=== PATIENT | female | born 1980 | race Caucasian/White ===

== ENCOUNTER 2018-03-15 17:43 | Emergency (ER) | payer MEDICAID ==
[~2018-03-15] VITALS: Ht 127 cm; Wt 94.3 kg
[2018-03-15 17:58] VITALS: BP 127/81; Ht 127 cm; Wt 94.3 kg
== END 2018-03-15 19:05 | disposition home or self-care (01) ==
LOC: ED 17:43
DX: G44.209 Tension-type headache, unspecified, not intractable (principal)